=== PATIENT | male | born 1955 | race African-American/Black ===

== ENCOUNTER 2023-02-24 16:46 | Inpatient (IN) | payer MEDICARE, OTHER ==
[~2023-02-24] VITALS: Ht 165.1 cm; Wt 58.5 kg
--- NOTE | 2023-02-24 17:14 | NUR ---
Pt seen by MD for bedside Eval. Safety measures in place. Will continue to monitor.
[2023-02-24] MEDS ORDERED: DOCU100T2 PO (17:36)
[2023-02-24] MEDS ORDERED: MAGN400O6 PO (17:36)
[2023-02-24] MEDS ORDERED: MULT-1275 PO (17:36)
[2023-02-24] MEDS ORDERED: OXCA600T5 PO (17:36)
[2023-02-24] MEDS ORDERED: SENN8.6T19 PO (17:36)
[2023-02-24] MEDS ORDERED: FERR-68 PO (17:36)
[2023-02-24] MEDS ORDERED: ERGO400C PO (17:36)
[2023-02-24] MEDS ORDERED: BISA10SU61 RC (17:36)
[2023-02-24] MEDS ORDERED: NA P230E RC (17:36)
[2023-02-24] MEDS ORDERED: ACET325T53 PO (17:36)
[2023-02-24] MEDS ORDERED: BENZ2TAB7 PO (17:36)
[2023-02-24 17:39] LABS: ALANINE AMINOTRANSFERASE 31 U/L (16-63); ALKALINE PHOSPHATASE 106 U/L (50-136); ASPARTATE AMINOTRANSFERASE 16 U/L (15-37); BILIRUBIN,DIRECT 0.1 mg/dL (0.0-0.2); BILIRUBIN,TOTAL 0.3 mg/dL (0.2-1.0); CARBON DIOXIDE 30 mmol/L (21-32); CHLORIDE 101 mmol/L (98-107); CREATININE 0.6 mg/dL (0.6-1.3); GLUCOSE 79 mg/dL (74-106); POTASSIUM 4.3 mmol/L (3.5-5.1); TOTAL PROTEIN, SERUM 6.9 g/dL (6.4-8.2); UREA NITROGEN, BLOOD 12 mg/dL (7-18)
[2023-02-24 17:40] LABS: ACETAMINOPHEN < 10.0 ug/mL (10-30)
--- NOTE | 2023-02-24 18:51 | NUR ---
Contacted Margie for Crisis Consult. Margie's voicebox is full and is unable to accept messages.
--- NOTE | 2023-02-24 19:15 | NUR ---
REPORT RECIVED FROM JOB MARCUS.
[2023-02-24 19:26] LABS: HEMATOCRIT 42.5 % (36.7-47.1); MEAN CORPUSCULAR HEMOGLOBIN 30.4 uug (23.8-33.4); MEAN CORPUSCULAR VOLUME 92.1 fL (73.0-96.2); PLATELET COUNT (AUTO) 278 K/uL (152-348)
--- NOTE | 2023-02-24 22:45 | NUR ---
PT CONFUSE . GIVEN A MEAL TO EAT . PT MISTY WITH NO N/V. PT HAS NO C/O CP AND NO SOB. NAD OBSERVED.
--- NOTE | 2023-02-25 00:39 | NUR ---
Bed given 145 A.
--- NOTE | 2023-02-25 02:19 | NUR ---
Report given to Beronica (nurse) from [facility].
[2023-02-25] MEDS ORDERED: MAGNESIUM HYDROXIDE 30 ML LIQUID UDC PO PRN ×2 (03:00→14:15)
[2023-02-25] MEDS ORDERED: MAG HYDROX/AL HYDROX/SIMETH 30 ML LIQUID UDC PO PRN (03:00)
[2023-02-25] MEDS ORDERED: ACETAMINOPHEN 325 MG TABLET PO PRN (03:00)
--- NOTE | 2023-02-25 04:00 | NUR ---
Pt. admitted to [facility] , under care of Dr. GAMBOA Belongs List completed PT A,A,AND O X 2 BUT VERY CONFUSED. PT TAKEN TO [facility] VIA W/C.
--- NOTE | 2023-02-25 04:50 | NUR ---
GPS ADMISSION NOTE; Patient is a 67 year old male, brought into the hospital from [facility]. Patient is on a 5150 for GD. Per the hold, the patient has been agitated, paranoid and has shown poor impulse control. He is not able to provide for food and snf. Upon face to face evaluation, the patient is confused and became aggressive with the staff providing care. Speech is garbled, difficult to understand and make needs known. The patient did however, make it clear that he wants to smoke. The unit rules were explained ,as well as, the plan of care. Frequent reorientation is needed and assistance with all ADLs. The patient is non ambulatory. A patients Rights Handbook and The Advisement were provided. V.S stable, a PRN for anxiety was given and the patient took the medication without hesitancy.Safety Stratiges are in place and ongoing. Continuing to monitor for further behavior escalation. No acute issues noted at this time.
[2023-02-25] MEDS: LORAZEPAM 1 MG TABLET PO PRN (05:11)
[2023-02-25 05:21] VITALS: BP 108/66
[2023-02-25 07:15] VITALS: BP 110/67
[2023-02-25] MEDS: NICOTINE 21 MG/24HR PATCH TD SCH (08:50)
[2023-02-25] MEDS: QUETIAPINE FUMARATE 25 MG TABLET PO SCH ×2 (10:05→20:41)
--- NOTE | 2023-02-25 11:45 | NUR ---
CRISTY Initial Discharge Note: [place] [address] ([phone]). Pt is welcome back upon discharge. Pt does not appear to have any family contact at this time. CRISTY will continue to work with pt, family and MD to ensure a safe and proper discharge plan.
--- NOTE | 2023-02-25 11:48 | NUR ---
Firearms Report: Transplant Coordinator completed and submitted a [employer] firearms report for 5150 grave disability certifications. A copy of report has been placed in patient chart.
[2023-02-25] MEDS ORDERED: ACETAMINOPHEN 325 MG TABLET-SA PATIENTS-PAIN ONLY PO PRN (14:15)
[2023-02-25] MEDS ORDERED: FLEET ENEMA 133 ML BOTTLE RC PRN (14:15)
[2023-02-25] MEDS ORDERED: BISACODYL 10 MG SUPP.RECT RC PRN (14:15)
[2023-02-25 15:20] VITALS: BP 118/61
--- NOTE | 2023-02-25 16:21 | NUR ---
Nursing- Kept patient in bed, monitoring safety. Restless, confused fidgety , bed alarm on. Confused, speech incoherent, mumbles, disrobing , removing his bed sheets, blankets on the floor , discouraged patient from removing all his blankets and not to throw them on the floor. Gets aggressive during his pm care . Poor safety awareness, remineding patient reorienting patient he is in the Hosp.
--- NOTE | 2023-02-25 20:20 | NUR ---
Received patient in bed, ambulate to the toilet with assist, continent and incontinent, he wets his pants and diaper, patient calm and cooperative with medications at this time, frequent visual check done risk for fall. cont to monitor.
[2023-02-25 20:26] VITALS: BP 117/70
[2023-02-25] MEDS: SENNOSIDES 1 TABLET PO SCH (20:41)
[2023-02-25] MEDS: DOCUSATE SODIUM 100 MG CAPSULE PO SCH (20:41)
--- NOTE | 2023-02-26 06:06 | NUR ---
Patient slept most of the night, no complains of pain, patient removes his diaper and pads, likes to horde food in his room, patient has good appetite and drink juices, kept clean and dry. cont to monitor.
[2023-02-26] MEDS: QUETIAPINE FUMARATE 25 MG TABLET PO SCH ×2 (08:57→20:34)
[2023-02-26] MEDS: CHOLECALCIFEROL 400 UNITS TABLET PO SCH (08:57)
[2023-02-26] MEDS: FERROUS SULFATE 325 MG TABEC PO SCH (08:57)
[2023-02-26] MEDS: NICOTINE 21 MG/24HR PATCH TD SCH (08:59)
[2023-02-26] MEDS: DOCUSATE SODIUM 100 MG CAPSULE PO SCH ×2 (09:29→20:34)
[2023-02-26] MEDS: MULTIVIT, IRON, MIN NO. 8, FA TABLET PO SCH (09:29)
--- NOTE | 2023-02-26 11:22 | NUR ---
Gps/Upper Cutter Out- Refused his Physical therapy this am, needed encouragement as well as prompting, compliant with routine meds., kept asking for more foods, noted patient hiding his foods under the bed or blamket, discouraged from doing so. Ambulated to the bathroom with no devices, sba. ambulates hunchback , unable to stand upright . safety reviewed .
[2023-02-26 16:12] VITALS: BP 125/79
[2023-02-26] MEDS: SENNOSIDES 1 TABLET PO SCH (20:34)
--- NOTE | 2023-02-27 06:56 | NUR ---
Patient awake no complain of pain, had shower today, patient calm and cooperative with medications, patient like to horde food, kept clean and dry, cont to monitor.
[2023-02-27 08:26] VITALS: BP 110/76
[2023-02-27] MEDS: FERROUS SULFATE 325 MG TABEC PO SCH (08:54)
[2023-02-27] MEDS: NICOTINE 21 MG/24HR PATCH TD SCH (08:54)
[2023-02-27] MEDS: QUETIAPINE FUMARATE 25 MG TABLET PO SCH ×3 (08:54→17:21)
[2023-02-27] MEDS: MULTIVIT, IRON, MIN NO. 8, FA TABLET PO SCH (08:54)
[2023-02-27] MEDS: DOCUSATE SODIUM 100 MG CAPSULE PO SCH ×2 (08:54→20:25)
[2023-02-27] MEDS: CHOLECALCIFEROL 400 UNITS TABLET PO SCH (08:56)
[2023-02-27] MEDS: OXCARBAZEPINE 300 MG TABLET PO SCH ×2 (13:46→23:17)
[2023-02-27 17:19] VITALS: BP 92/58
--- NOTE | 2023-02-27 18:11 | NUR ---
Received patient is confused, restless, disorganized , compliant with all po medication safety emphasized, bed alarm on for safety assisted patient with all ADLS will continue close monitoring.
[2023-02-27 20:01] VITALS: BP 112/62
[2023-02-27] MEDS: SENNOSIDES 1 TABLET PO SCH (20:25)
[2023-02-28 07:45] VITALS: BP 103/81
[2023-02-28] MEDS: NICOTINE 21 MG/24HR PATCH TD SCH (08:49)
[2023-02-28] MEDS: FERROUS SULFATE 325 MG TABEC PO SCH (08:49)
[2023-02-28] MEDS: QUETIAPINE FUMARATE 25 MG TABLET PO SCH ×3 (08:49→17:15)
[2023-02-28] MEDS: DOCUSATE SODIUM 100 MG CAPSULE PO SCH ×2 (08:49→20:28)
[2023-02-28] MEDS: MULTIVIT, IRON, MIN NO. 8, FA TABLET PO SCH (08:49)
[2023-02-28] MEDS: OXCARBAZEPINE 300 MG TABLET PO SCH ×3 (09:00→10:00)
[2023-02-28] MEDS: CHOLECALCIFEROL 400 UNITS TABLET PO SCH (09:00)
--- NOTE | 2023-02-28 15:36 | NUR ---
patient is confused, restless, disorganized , compliant with all po medication .able to transfer self from bed to wheel chair safety emphasized, bed alarm on for safety assisted patient with all ADLS will continue close monitoring.
[2023-02-28 16:12] VITALS: BP 112/71
[2023-02-28 19:58] VITALS: BP 110/74
[2023-02-28] MEDS: SENNOSIDES 1 TABLET PO SCH (20:28)
--- NOTE | 2023-03-01 05:24 | NUR ---
Received patient in bed, patient continent and incontinent of bladder, kept clean and dry, cooperative with all medications, patient has good appetite, kept clean and dry, cont to monitor.
--- NOTE | 2023-03-01 07:22 | NUR ---
GPS Nursing notes: Patient lying in bed awake, pleasantly confused, rambling with clear speech, no S/S of discomforts noted, fall and safety precautions implemented, will continue to monitor.
--- NOTE | 2023-03-01 07:23 | NUR ---
Patient asleep but arousable, cooperative wtih medications, but still confused, forgetful when doing toileting, kept clean and dry, cont to monitor.
[2023-03-01 08:31] VITALS: BP 112/64
[2023-03-01] MEDS: NICOTINE 21 MG/24HR PATCH TD SCH (08:49)
[2023-03-01] MEDS: MULTIVIT, IRON, MIN NO. 8, FA TABLET PO SCH (08:49)
[2023-03-01] MEDS: DOCUSATE SODIUM 100 MG CAPSULE PO SCH ×2 (08:49→20:30)
[2023-03-01] MEDS: FERROUS SULFATE 325 MG TABEC PO SCH (08:49)
[2023-03-01] MEDS: CHOLECALCIFEROL 400 UNITS TABLET PO SCH (08:50)
[2023-03-01] MEDS: OXCARBAZEPINE 300 MG TABLET PO SCH ×2 (08:50→20:30)
[2023-03-01] MEDS: QUETIAPINE FUMARATE 25 MG TABLET PO SCH ×3 (08:50→16:07)
--- NOTE | 2023-03-01 15:27 | NUR ---
GPS Nursing notes: Patient is staying in his room, in bed, gets up with FWW, mumbling at times, "no, you can have some, I coffee". Patient takes all medications, eats 100% of meals,and snacks. patient is total care, at time is resistant with when staff is providing care, change linen and patient clothing through the day due to patient saving spilling food and juice in the bed, refuses to go to groups. Fall and safety precaution implemented, emotional support provided.
--- NOTE | 2023-03-01 16:18 | NUR ---
Discharge Update: [place] [address] ([phone]). Pt is welcome back upon discharge per Pati samayoa. Pt does not have any family contact at this time.
[2023-03-01 16:20] VITALS: BP 117/71
[2023-03-01] MEDS: SENNOSIDES 1 TABLET PO SCH (20:30)
[2023-03-01 21:01] VITALS: BP 123/69
--- NOTE | 2023-03-02 05:16 | NUR ---
patient in his room, mumbling to himself, A&0x2. Garbled speech. patient is very disorganized, collecting clutter and hoarding it in his bed. Patient is malodorous and unkempt, he is refusing care and doesn't want to be touched. Patient reminded of unit rules, however disregard the instructions and continuos to collect garbage . He is sleeping on and off. Asking for food and coffee in between. He is med complaint. All safety measures in placed.
[2023-03-02 08:09] VITALS: BP 93/63
[2023-03-02] MEDS: OXCARBAZEPINE 300 MG TABLET PO SCH ×2 (09:18→21:56)
[2023-03-02] MEDS: DOCUSATE SODIUM 100 MG CAPSULE PO SCH ×2 (09:18→20:38)
[2023-03-02] MEDS: NICOTINE 21 MG/24HR PATCH TD SCH (09:19)
[2023-03-02] MEDS: FERROUS SULFATE 325 MG TABEC PO SCH (09:19)
[2023-03-02] MEDS: QUETIAPINE FUMARATE 25 MG TABLET PO SCH ×3 (09:19→20:38)
[2023-03-02] MEDS: MULTIVIT, IRON, MIN NO. 8, FA TABLET PO SCH (09:19)
[2023-03-02] MEDS: CHOLECALCIFEROL 400 UNITS TABLET PO SCH (09:26)
--- NOTE | 2023-03-02 13:00 | NUR ---
Patient had court hearing today, vice president compliance Minerva Fontana gave 14 Day hold probable cause for GD only.
[2023-03-02 16:30] VITALS: BP 96/61
--- NOTE | 2023-03-02 18:21 | NUR ---
Received in his room, playing with trash , pt has garbled speech. Pt is disorganized,malodorous and has unkempt appearance.Pt pees all over his bed and the floor. pt is labile and easily irritable when staff is trying to change diaper and clothe . Pt aranda not like to be touched. Pt is collecting trash and hoarding it in his bed. Patient reminded of unit rules, however disregard the instructions and continuos to collect garbage . Reassurance provided. Re-oriented, Re-directed. Safety measures put in place. Continue to monitor for safety, continue with treatment plan.
--- NOTE | 2023-03-02 19:30 | NUR ---
Received patient in bed, eating his snack, like to hored food. Patient dry and clean, Patient ambulate with the walker, cooperative with medication and calm as this time, cont to monitor,
[2023-03-02 20:18] VITALS: BP 118/80
[2023-03-02] MEDS: SENNOSIDES 1 TABLET PO SCH (20:38)
[2023-03-03] MEDS: LORAZEPAM 1 MG TABLET PO PRN ×2 (03:00→15:48)
--- NOTE | 2023-03-03 03:00 | NUR ---
Patient in bed, goes to the toilet to urinate but patient is incontinent of bladder, unable to control urination, patient removes his diaper, prefer not to wear them. Patient urinate while going to the toilet, removes bed pad, urinate on his pants and gowns. Patient get agitated when redirected, yells and screams at staff, given Ativan po as directed, kept patient clean and dry, cont to monitor.
--- NOTE | 2023-03-03 05:06 | NUR ---
0300 [employer] was down, unable to scan meds that time, 0500 [employer] is back at this time, admin schedule was use to record administration of this medications.
--- NOTE | 2023-03-03 05:35 | NUR ---
Patient finally went to sleep, still removes his diaper, removes his bed pad, uncooperative with care, cont to redirect, cont to monitor.
[2023-03-03 07:30] VITALS: BP 106/79
[2023-03-03] MEDS: MULTIVIT, IRON, MIN NO. 8, FA TABLET PO SCH (08:41)
[2023-03-03] MEDS: CHOLECALCIFEROL 400 UNITS TABLET PO SCH (08:41)
[2023-03-03] MEDS: DOCUSATE SODIUM 100 MG CAPSULE PO SCH ×2 (08:41→20:13)
[2023-03-03] MEDS: OXCARBAZEPINE 300 MG TABLET PO SCH ×2 (08:42→20:14)
[2023-03-03] MEDS: QUETIAPINE FUMARATE 25 MG TABLET PO SCH ×3 (08:42→20:13)
[2023-03-03] MEDS: FERROUS SULFATE 325 MG TABEC PO SCH (08:42)
[2023-03-03] MEDS: NICOTINE 21 MG/24HR PATCH TD SCH (08:44)
--- NOTE | 2023-03-03 12:38 | NUR ---
Gps/Client Services Manager- Disorganized thoughts , confused, fidgety , kept up in his bart-chair, grabbing all linens and bed sheets from his bed, stripping them. Hides empty cups of apple juices and carton of milk inside his hospital gown. Feed self ind. asking for more foods. Safety continue to emphasized . Patient is malodorous , tried to assist his with his am hygiene , gets uncooperative, difficulty following directions grabbing staff as the provide his care.
[2023-03-03 15:27] VITALS: BP 104/68
[2023-03-03 19:52] VITALS: BP 111/68
[2023-03-03] MEDS: SENNOSIDES 1 TABLET PO SCH (20:13)
[2023-03-03] MEDS: ZOLPIDEM 5 MG TABLET PO PRN (21:11)
[2023-03-04] MEDS: LORAZEPAM 1 MG TABLET PO PRN (01:15)
--- NOTE | 2023-03-04 05:42 | NUR ---
Received patient seated at the Janey chair, reported with restlessness, and agitation, Patient given snack and juice to drink. took all medications, given sleeping medications to promote sleep. Patient yells and screams at the staff, refused to stayed in bed, removes diapers and urinate on the floor. cont to reorient patient but not effective, given Ativan 1mg po prn for agitation and restlessness, with some help.
[2023-03-04 07:30] VITALS: BP 110/66
[2023-03-04] MEDS: FERROUS SULFATE 325 MG TABEC PO SCH (08:26)
[2023-03-04] MEDS: NICOTINE 21 MG/24HR PATCH TD SCH (08:26)
[2023-03-04] MEDS: MULTIVIT, IRON, MIN NO. 8, FA TABLET PO SCH (08:27)
[2023-03-04] MEDS: DOCUSATE SODIUM 100 MG CAPSULE PO SCH ×2 (08:27→20:14)
[2023-03-04] MEDS: QUETIAPINE FUMARATE 25 MG TABLET PO SCH ×3 (08:28→20:15)
[2023-03-04] MEDS: OXCARBAZEPINE 300 MG TABLET PO SCH ×2 (08:32→20:14)
[2023-03-04] MEDS: CHOLECALCIFEROL 400 UNITS TABLET PO SCH (08:32)
[2023-03-04 16:12] VITALS: BP 110/72
--- NOTE | 2023-03-04 17:05 | NUR ---
Nursing - Kept patient up in his recliner chair, for safety, patient kept removing his bed sheets . Remains messy eater , hiding empty cups , plastic utensils, empty juices under his hosp gown. Needed 2 staff to assist and provide pm care and attends to his hygiene. Safety emphasized .
[2023-03-04 20:00] VITALS: BP 107/62
[2023-03-04] MEDS: SENNOSIDES 1 TABLET PO SCH (20:15)
[2023-03-04] MEDS: ZOLPIDEM 5 MG TABLET PO PRN (21:55)
--- NOTE | 2023-03-05 05:06 | NUR ---
GPS: Remain disorganized and collecting everything he can reach. mumbling to himself, alert and oriented x 2. Garbled speech. collecting clutter and hoarding it in his bed. Patient is malodorous and unkempt. Patient reminded of unit rules, however disregard the instructions and continuos to collect garbage . continue monitoring for safety.
--- NOTE | 2023-03-05 06:35 | NUR ---
slept 4.30 hrs through the night.
[2023-03-05 07:51] VITALS: BP 111/66
[2023-03-05] MEDS: MULTIVIT, IRON, MIN NO. 8, FA TABLET PO SCH (08:24)
[2023-03-05] MEDS: OXCARBAZEPINE 300 MG TABLET PO SCH ×2 (08:25→20:30)
[2023-03-05] MEDS: CHOLECALCIFEROL 400 UNITS TABLET PO SCH (08:25)
[2023-03-05] MEDS: NICOTINE 21 MG/24HR PATCH TD SCH (08:26)
[2023-03-05] MEDS: QUETIAPINE FUMARATE 25 MG TABLET PO SCH ×3 (08:26→20:30)
[2023-03-05] MEDS: FERROUS SULFATE 325 MG TABEC PO SCH (08:26)
[2023-03-05] MEDS: DOCUSATE SODIUM 100 MG CAPSULE PO SCH ×2 (08:26→20:30)
[2023-03-05 16:52] VITALS: BP 125/80
[2023-03-05 20:01] VITALS: BP 118/68
[2023-03-05] MEDS: ZOLPIDEM 5 MG TABLET PO PRN (20:30)
[2023-03-05] MEDS: SENNOSIDES 1 TABLET PO SCH (20:30)
--- NOTE | 2023-03-06 07:02 | NUR ---
pt remains restless, removing his diaper and soiling pants and his bed. Pt is allowing to provide care, pt has poor insight, pt forgets limitations, states he is going to go walk around. pt was compliant with medications.
[2023-03-06 08:16] VITALS: BP 97/74
[2023-03-06] MEDS: DOCUSATE SODIUM 100 MG CAPSULE PO SCH ×2 (08:36→20:08)
[2023-03-06] MEDS: FERROUS SULFATE 325 MG TABEC PO SCH (08:36)
[2023-03-06] MEDS: QUETIAPINE FUMARATE 25 MG TABLET PO SCH ×3 (08:36→20:08)
[2023-03-06] MEDS: NICOTINE 21 MG/24HR PATCH TD SCH (08:37)
[2023-03-06] MEDS: OXCARBAZEPINE 300 MG TABLET PO SCH ×2 (08:37→20:08)
[2023-03-06] MEDS: CHOLECALCIFEROL 400 UNITS TABLET PO SCH (08:37)
[2023-03-06] MEDS: MULTIVIT, IRON, MIN NO. 8, FA TABLET PO SCH (08:38)
--- NOTE | 2023-03-06 14:38 | NUR ---
Received patient is disorganized, confused, needed limit setting, and constant redirections , medication compliant with prompting .removed dirty diaper throw away on the floor .will continue close monitoring.
[2023-03-06 16:42] VITALS: BP 125/78
[2023-03-06 19:58] VITALS: BP 110/76
[2023-03-06] MEDS: SENNOSIDES 1 TABLET PO SCH (20:09)
--- NOTE | 2023-03-07 04:32 | NUR ---
Received in his room,Disorganized, unkept appearance, malodors, pt takes off diaper and urinates all over his bed and on floor. Pt has garbled speech. Pt is collecting clutter from trash and hoarding it on his bed.Pt is labile and easily irritable when staff is trying to change diaper and clothe . Pt does not like to be touched. Pt needs to be constantly reminded of unit rules, however disregards the instructions and continuos to collect garbage . Reassurance provided. Re-oriented, Re-directed. Safety measures put in place. Continue to monitor for safety, continue with treatment plan.
[2023-03-07 08:15] VITALS: BP 114/65
[2023-03-07] MEDS: NICOTINE 21 MG/24HR PATCH TD SCH (08:31)
[2023-03-07] MEDS: OXCARBAZEPINE 300 MG TABLET PO SCH ×2 (08:31→21:36)
[2023-03-07] MEDS: FERROUS SULFATE 325 MG TABEC PO SCH (08:32)
[2023-03-07] MEDS: QUETIAPINE FUMARATE 25 MG TABLET PO SCH ×2 (08:32→17:08)
[2023-03-07] MEDS: CHOLECALCIFEROL 400 UNITS TABLET PO SCH (08:32)
[2023-03-07] MEDS: MULTIVIT, IRON, MIN NO. 8, FA TABLET PO SCH (08:32)
[2023-03-07] MEDS: DOCUSATE SODIUM 100 MG CAPSULE PO SCH ×2 (08:33→21:36)
[2023-03-07 16:06] VITALS: BP 122/79
[2023-03-07 19:53] VITALS: BP 116/68
[2023-03-07] MEDS: QUETIAPINE FUMARATE 100 MG TABLET PO SCH (21:36)
[2023-03-07] MEDS: SENNOSIDES 1 TABLET PO SCH (21:36)
[2023-03-08] MEDS: ZOLPIDEM 5 MG TABLET PO PRN (02:18)
--- NOTE | 2023-03-08 02:21 | NUR ---
Pt came out of his bedroom and attempted to open the refrigerator to steal food/snacks. Due to his restless behavior and having trouble falling asleep, this nurse gave Abe po prn. Safety measures in place. Will continue to monitor.
[2023-03-08 08:00] VITALS: BP 109/70
[2023-03-08] MEDS: MULTIVIT, IRON, MIN NO. 8, FA TABLET PO SCH (08:45)
[2023-03-08] MEDS: FERROUS SULFATE 325 MG TABEC PO SCH (08:45)
[2023-03-08] MEDS: CHOLECALCIFEROL 400 UNITS TABLET PO SCH (08:45)
[2023-03-08] MEDS: QUETIAPINE FUMARATE 25 MG TABLET PO SCH ×2 (08:45→16:39)
[2023-03-08] MEDS: OXCARBAZEPINE 300 MG TABLET PO SCH ×2 (08:45→21:06)
[2023-03-08] MEDS: DOCUSATE SODIUM 100 MG CAPSULE PO SCH ×2 (08:46→21:07)
[2023-03-08] MEDS: NICOTINE 21 MG/24HR PATCH TD SCH (08:46)
--- NOTE | 2023-03-08 15:32 | NUR ---
Received patient awake in his room. Patient is demanding, needy, slurred speech, dirty and disheveled appearance, malodorous, confused and forgetful at times. Patient keeps papers, trash, dirty clothes and diapers in his blankets and underneath his gown, gets agitated when asked to throw everything away. Patient is compliant with medications, cooperative with nursing care when redirected. Reality orientation provided. Fall and safety precautions implemented.
[2023-03-08 15:50] VITALS: BP 117/72
[2023-03-08 19:57] VITALS: BP 111/70
[2023-03-08] MEDS: SENNOSIDES 1 TABLET PO SCH (21:07)
[2023-03-08] MEDS: QUETIAPINE FUMARATE 100 MG TABLET PO SCH (21:07)
[2023-03-08] MEDS: LORAZEPAM 1 MG TABLET PO PRN (22:17)
--- NOTE | 2023-03-08 22:23 | NUR ---
Pt was found taking off his clothes in the recreational room. Pt followed directions and was assisted back into his room, onto his bed. Gave Ativan 1mg to help manage his restlessness and anxiousness. Will continue to provide a safe environment.
[2023-03-09 07:43] VITALS: BP 128/86
[2023-03-09] MEDS: OXCARBAZEPINE 300 MG TABLET PO SCH ×2 (09:18→21:13)
[2023-03-09] MEDS: FERROUS SULFATE 325 MG TABEC PO SCH (09:18)
[2023-03-09] MEDS: CHOLECALCIFEROL 400 UNITS TABLET PO SCH (09:18)
[2023-03-09] MEDS: QUETIAPINE FUMARATE 25 MG TABLET PO SCH ×2 (09:19→16:16)
[2023-03-09] MEDS: DOCUSATE SODIUM 100 MG CAPSULE PO SCH ×2 (09:19→21:13)
[2023-03-09] MEDS: MULTIVIT, IRON, MIN NO. 8, FA TABLET PO SCH (09:19)
[2023-03-09] MEDS: NICOTINE 21 MG/24HR PATCH TD SCH (09:19)
--- NOTE | 2023-03-09 15:02 | NUR ---
Patient is confused, disoriented, disorganized, fixated on keeping all food, juices, wraps, papers, clothing he can possibly can in his pants, gown, blankets, bart chair. Patient is compliant with medications, needs to be redirected most of the time. Patient is disheveled and malodorous. Patient is A/O X 2 to person. Reality orientation provided. Fall and safety precautions implemented.
[2023-03-09 15:12] VITALS: BP 111/70
[2023-03-09 20:01] VITALS: BP 112/52
[2023-03-09] MEDS: SENNOSIDES 1 TABLET PO SCH (21:13)
[2023-03-09] MEDS: QUETIAPINE FUMARATE 100 MG TABLET PO SCH (21:13)
[2023-03-10] MEDS: CHOLECALCIFEROL 400 UNITS TABLET PO SCH (09:12)
[2023-03-10] MEDS: OXCARBAZEPINE 300 MG TABLET PO SCH (09:12)
[2023-03-10] MEDS: NICOTINE 21 MG/24HR PATCH TD SCH (09:12)
[2023-03-10] MEDS: DOCUSATE SODIUM 100 MG CAPSULE PO SCH (09:13)
[2023-03-10] MEDS: MULTIVIT, IRON, MIN NO. 8, FA TABLET PO SCH (09:13)
[2023-03-10] MEDS: QUETIAPINE FUMARATE 25 MG TABLET PO SCH (09:13)
[2023-03-10] MEDS: FERROUS SULFATE 325 MG TABEC PO SCH (09:13)
[2023-03-10 09:14] VITALS: BP 186/99
--- NOTE | 2023-03-10 09:49 | NUR ---
CRISTY Discharge Note: Pt will be discharged to [facility] located at [address] [place] [address] ([phone]) via Ambulance transportation at 11AM. CRISTY spoke with admin coordinator, Pati at the facility who states they are ready to accept the patient today. pt does not have any family contact. Pt is aware and agreeable with discharge plan. Pt is alert and oriented x1, is unable to plan for self-care at this time. However, pt is willing to accept care at SNF. Pt denies any suicidal or homicidal ideation. Pt will follow-up at the facility with Psychiatrist, Dr. Strange and Skinning Machine Feeder, Dr. Bettencourt. Pt presents with calm mood and congruent affect. PHARMACY: [facility] ([phone]) [address] [facility] [address].
[2023-03-10 10:10] VITALS: BP 112/60
--- NOTE | 2023-03-10 11:32 | NUR ---
Received orders to discharge this patient to [facility] located at [address] [place], [place] [id number] ([phone]) via Ambulance transportation at 11AM. Patient is agreeable with discharge plans, but refuses signing all discharge documentation. Patient denies SI/HI AH/VH, SOB, pain or any discomfort. Patient left the unit at 11:15AM. Patient did not bring any belongings. Reassurance given. Fall and safety precautions implemented.
== END 2023-03-10 11:15 | DRG 885 ==
LOC: ER 16:46 → GPS 23:00
PROVIDERS: ADMIT Psychiatry & Neurology Psychiatry; ATTEND Nurse Practitioner Acute Care
DX: F29 Unspecified psychosis not due to a substance or known physiological condition (principal); F02.811 Dementia in other diseases classified elsewhere, unspecified severity, with agitation; G20 Parkinson's disease; G40.909 Epilepsy, unspecified, not intractable, without status epilepticus; E11.9 Type 2 diabetes mellitus without complications; I51.9 Heart disease, unspecified; J44.9 Chronic obstructive pulmonary disease, unspecified; F31.9 Bipolar disorder, unspecified; F25.9 Schizoaffective disorder, unspecified; G24.01 Drug induced subacute dyskinesia; Z91.148 Patient's other noncompliance with medication regimen for other reason; Z79.899 Other long term (current) drug therapy; K21.9 Gastro-esophageal reflux disease without esophagitis; Z20.822 Contact with and (suspected) exposure to COVID-19; Z86.39 Personal history of other endocrine, nutritional and metabolic disease
CPT/HCPCS: 36415; 85025; 93005; G0480